=== PATIENT | male | born 1955 | race Caucasian/White ===

== ENCOUNTER 2020-03-04 00:07 | Day surgery (SDC) | payer OTHER, SELFPAY ==
[2020-03-01 13:20] VITALS: BMI 30.4
[2020-03-04 08:34] VITALS: BP 125/82; PULSE 74; RESP 18; TEMP 36.3; O2SAT 99
[2020-03-04] MEDS: LACTATED RINGERS 1,000 ML 150 ML IV CONT (08:36)
[2020-03-04 08:47] LABS: Glucose Point of Care 136 (65-105)
--- NOTE | 2020-03-04 08:47 | WPDANESEPPF ---
Anes - Initial Pre Proc Eval Procedure: Operation Date: 03/04/20 10:00 Proposed Procedures p Colonoscopy - Anand Servin MD Date/Time: 03/04/20 08:47 Surgeon: Anand Servin MD Pre Op Diagnosis: rectal bleed Patient Data Age: 64 Gender: M Height: 5 ft 11 in Weight: 97.7 kg Last Vital Signs Temp 36.3 C L 03/04/20 08:34 Pulse 74 03/04/20 08:34 Resp 18 03/04/20 08:34 BP 125/82 03/04/20 08:34 Pulse Ox 99 03/04/20 08:34 Allergies Allergy/AdvReac Type Severity Reaction Status Date / Time No Known Allergies Allergy Verified 03/01/20 13:31 Home Medications Medication Instructions Recorded Confirmed Type albuterol sulfate 2.5 mg CONTINUOUS NEBULIZATION 03/01/20 03/01/20 History DAILY apixaban [Eliquis] 5 mg PO DAILY 03/01/20 03/01/20 History dulaglutide [Trulicity] 1.5 mg SUBCUT WEEKLY 03/01/20 03/01/20 History empagliflozin [Jardiance] 25 mg PO DAILY 03/01/20 03/01/20 History ergocalciferol (vitamin D2) 50,000 unit PO WEEKLY 03/01/20 03/01/20 History [Vitamin D2] insulin detemir U-100 [Levemir See Rx Instructions .ROUTE .COMPLEX 03/01/20 03/01/20 History FlexTouch U-100 Insuln] insulin lispro [Humalog KwikPen See Rx Instructions .ROUTE .COMPLEX 03/01/20 03/01/20 History Insulin] metformin 500 mg PO BID 03/01/20 03/01/20 History metoprolol succinate 25 mg PO DAILY 03/01/20 03/01/20 History rosuvastatin 40 mg PO DAILY 03/01/20 03/01/20 History tamsulosin 0.4 mg PO DAILY 03/01/20 03/01/20 History Laboratory Tests 03/04/20 08:42 POC Capillary Glucose 136 mg/dl H mg/dl (65-105) Patient hx anesthesia problems: none Family hx anesthesia problems: none PMFSH Past Medical History Medical History (Updated 03/04/20 @ 08:48 by Clark Dolan MD) Diabetes HTN (hypertension) Hyperlipidemia Obesity AMINTA (obstructive sleep apnea) Pacemaker Anes - Eval Final PreProcedure Day of Procedure 03/04/20 08:47 Patient weight: obese Heart: regular rate and rhythm Lungs: clear to auscultation Airway: Mallampati scale class 1 Neurological: alert and oriented ASA classification: III Emergent: no Anesthetic plan: proceed Anesthesia type and monitoring: general and standard monitoring Informed Consent: The patient's anesthetic plan and its attendant risks and benefits were discussed with the patient/family/POA. Questions were solicited and answers provided to the satisfaction of the patient/family/POA.
--- NOTE | 2020-03-04 10:03 | PM.HPGS ---
History of Present Illness History of Present Illness Consent: Risks, benefits, and alternatives have been discussed and questions answered. Patient agrees to proceed with procedure. Chief complaint: rectal bleed Narrative: David Blackman is a 64 year old male Who has had persistent hematochezia for the past 3 months. Patient just did radiation seeds risk prostate for prostate cancer. Patient also has rectal pain. He did have a previous colonoscopy a year and a half ago which was unremarkable. [facility] Past Medical History Medical History Diabetes HTN (hypertension) Hyperlipidemia Obesity AMINTA (obstructive sleep apnea) Pacemaker Meds Home Medications and Allergies Home Medications Medication Instructions Recorded Confirmed Type albuterol sulfate 2.5 mg CONTINUOUS NEBULIZATION 03/01/20 03/01/20 History DAILY apixaban [Eliquis] 5 mg PO DAILY 03/01/20 03/01/20 History dulaglutide [Trulicity] 1.5 mg SUBCUT WEEKLY 03/01/20 03/01/20 History empagliflozin [Jardiance] 25 mg PO DAILY 03/01/20 03/01/20 History ergocalciferol (vitamin D2) 50,000 unit PO WEEKLY 03/01/20 03/01/20 History [Vitamin D2] insulin detemir U-100 [Levemir See Rx Instructions .ROUTE .COMPLEX 03/01/20 03/01/20 History FlexTouch U-100 Insuln] insulin lispro [Humalog KwikPen See Rx Instructions .ROUTE .COMPLEX 03/01/20 03/01/20 History Insulin] metformin 500 mg PO BID 03/01/20 03/01/20 History metoprolol succinate 25 mg PO DAILY 03/01/20 03/01/20 History rosuvastatin 40 mg PO DAILY 03/01/20 03/01/20 History tamsulosin 0.4 mg PO DAILY 03/01/20 03/01/20 History Allergies Allergy/AdvReac Type Severity Reaction Status Date / Time No Known Allergies Allergy Verified 03/01/20 13:31 Vital Signs Vital Signs - 24 hr 03/04/20 08:34 Temperature 36.3 C L Pulse Rate 74 Respiratory Rate 18 Blood Pressure 125/82 Pulse Oximetry 99 Exam Const: Orientation/consciousness: patient oriented x3 Resp: Auscultation: clear to auscultation bilaterally Cardio: Rate: regular rate Rhythm: regular rhythm Heart sounds: no murmurs GI: GI Palp: Yes Soft to palpation, No Tenderness to palpation present (GI), Yes No hepatosplenomegaly present and No Palpable mass present Auscultation: normal bowel sounds Neuro: General: patient oriented x3 and no focal motor deficits Extrem: General: no pedal edema Assessment and Plan Additional Plan Patient undergoing colonoscopy for evaluation of hematochezia
--- NOTE | 2020-03-04 10:34 | SUR.OPER ---
TOPICAL APPLICATION OF SURGIFOAM SIZE 100 TO RECTAL ULCER EXP: 2023-02-05 LOT: [id number]
[2020-03-04 10:40] VITALS: BP 95/67; PULSE 73; RESP 21; O2SAT 96
[2020-03-04 10:43] VITALS: BP 99/70; PULSE 69; RESP 18; O2SAT 96
[2020-03-04 10:53] VITALS: BP 104/71; PULSE 60; RESP 19; O2SAT 96
[2020-03-04 11:00] VITALS: BP 103/71; PULSE 60; RESP 19; O2SAT 98
[2020-03-04 11:09] LABS: Glucose Point of Care 92 (65-105)
[2020-03-04 11:10] VITALS: BP 106/74; PULSE 60; RESP 18; O2SAT 98
--- NOTE | 2020-03-04 11:12 | SUR.PHASEII ---
03/04/20 1112 patient resting no rectal bleeding noted.NERI SHAH
--- NOTE | 2020-03-04 11:33 | SUR.PHASEII ---
1125 PACKING CAME OUT WHEN PATIENT GOT UP TO USE THE BATHROOM, NO BLOOD NOTED ON PACKING. NERI SHAH
== END 2020-03-04 11:54 | disposition home or self-care (01) ==
PROVIDERS: PCP Family Medicine; Visit Provider Internal Medicine Gastroenterology
PROC: 0DJD8ZZ Inspection of Lower Intestinal Tract, Via Natural or Artificial Opening Endoscopic (ICD-10-PCS; CPT 45330; principal; 2020-03-04 10:00)
DX: K62.6 Ulcer of anus and rectum (principal); K64.8 Other hemorrhoids; C61 Malignant neoplasm of prostate; I10 Essential (primary) hypertension; E78.5 Hyperlipidemia, unspecified; E11.9 Type 2 diabetes mellitus without complications; G47.33 Obstructive sleep apnea (adult) (pediatric); Z95.0 Presence of cardiac pacemaker; E66.9 Obesity, unspecified; Z68.30 Body mass index [BMI] 30.0-30.9, adult; Z79.4 Long term (current) use of insulin; Z79.84 Long term (current) use of oral hypoglycemic drugs; Z79.01 Long term (current) use of anticoagulants
CPT/HCPCS: 45382; J2704; J7120